=== PATIENT | female | born 1995 | race Caucasian/White ===

== ENCOUNTER 2016-10-02 20:19 | Emergency (ER) | payer OTHER ==
[~2016-10-02 20:19] MED LIST: ALBUTEROL; CEL20 PO; MOT600 PO; SER25 PO; ZOFRAN4 M1 PO
[2016-10-02 22:08] VITALS: BP 135/75
== END 2016-10-02 22:09 | disposition home or self-care (01) ==
LOC: ED 20:19
DX: S01.511A Laceration without foreign body of lip, initial encounter (principal); J45.909 Unspecified asthma, uncomplicated; Z88.0 Allergy status to penicillin; Z88.1 Allergy status to other antibiotic agents; X58.XXXA Exposure to other specified factors, initial encounter; Y93.89 Activity, other specified; Y99.8 Other external cause status; Y92.89 Other specified places as the place of occurrence of the external cause; Z91.040 Latex allergy status
CPT/HCPCS: J2001

== ENCOUNTER 2018-03-18 13:20 | Emergency (ER) | payer OTHER ==
[~2018-03-18] VITALS: Ht 162.6 cm; Wt 61.7 kg
[2018-03-18 13:28] VITALS: Ht 162.6 cm; Wt 61.7 kg
[2018-03-18 14:16] LABS: microscopic required? YES; urine erythrocyte 3+ (NEGATIVE)
[2018-03-18 14:28] LABS: BASOPHIL % 0.2 % (0-2); PLATELET COUNT 319 x10^3mcL (130-400); RED CELL DISTRIBUTION WIDTH 13.8 % (11.5-14.5)
[2018-03-18 14:52] VITALS: BP 120/84
== END 2018-03-18 15:45 | disposition left against medical advice (07) ==
LOC: ED 13:20
PROVIDERS: Emergency Medicine
DX: N93.9 Abnormal uterine and vaginal bleeding, unspecified (principal); R10.10 Upper abdominal pain, unspecified; J45.909 Unspecified asthma, uncomplicated; Z88.0 Allergy status to penicillin; Z88.1 Allergy status to other antibiotic agents; Z91.040 Latex allergy status; Z90.49 Acquired absence of other specified parts of digestive tract; Z98.890 Other specified postprocedural states
CPT/HCPCS: J2270

== ENCOUNTER 2019-06-29 02:33 | Emergency (ER) | payer MEDICAID ==
[~2019-06-29] VITALS: Ht 160 cm; Wt 63.5 kg
[2019-06-29 02:40] VITALS: BP 131/90; Ht 160 cm; Wt 63.5 kg
== END 2019-06-29 03:16 | disposition other institution (70) ==
LOC: ED 02:33
DX: M79.642 Pain in left hand (principal); J45.909 Unspecified asthma, uncomplicated; Z88.1 Allergy status to other antibiotic agents; Z91.040 Latex allergy status; Z88.0 Allergy status to penicillin

== ENCOUNTER 2019-06-29 02:33 | Emergency (ER) | payer OTHER | END 2019-06-29 03:16 | disposition other institution (70) | LOC: ED 02:33 | DX: Z02.89 Encounter for other administrative examinations (principal) ==